=== PATIENT | female | born 1980 | race American Indian/Alaskan Native ===

== ENCOUNTER 2016-07-20 04:48 | Emergency (ER) | payer OTHER ==
[2016-07-20] MEDS ORDERED: DUONEB 0.5 MG-3 MG/3 ML SOLN IH ONE ×2 (04:49→05:05)
[2016-07-20] MEDS ORDERED: PROVENTIL IH ONE ×2 (05:22→05:38)
[2016-07-20] MEDS ORDERED: ATROVENT IH ONE ×2 (05:22→05:38)
[2016-07-20] MEDS ORDERED: ROBITUSSIN AC PO ONE (05:29)
[2016-07-20 06:48] LABS: Anion Gap 19 mmol/L; BUN/Creatinine Ratio 5.55; Blood Urea Nitrogen 5 mg/dL (7-17); Calcium 8.3 mg/dL (8.4-10.2); Carbon Dioxide 22 mmol/L (22-30); Chloride 104.1 mmol/L (98-107); Glucose 103 mg/dL (65-100); Magnesium 2.1 mg/dL (1.7-2.3); Potassium 3.8 mmol/L (3.6-5.0); Sodium 141 mmol/L (137-145)
[2016-07-20 06:51] LABS: Basophils % (Auto) 0.3 % (0.0-1.8); Hematocrit 40.9 % (30.3-42.9); Hemoglobin 13.4 gm/dl (10.1-14.3); Mean Corpuscular HGB Conc 33 % (30-34); Mean Corpuscular Hemoglobin 29 pg (28-32); Mean Corpuscular Volume 89 fl (79-97); Platelet Count 287 K/mm3 (140-440); Red Blood Count 4.58 M/mm3 (3.65-5.03); Red Cell Distribution Width 14.7 % (13.2-15.2); White Blood Count 10.9 K/mm3 (4.5-11.0)
[2016-07-20] MEDS ORDERED: NACL 0.9% 1000 ML 1,000 ML IV ONE (08:38)
[2016-07-20] MEDS ORDERED: TYLENOL PO ONE (08:38)
[2016-07-20] MEDS ORDERED: TORADOL IV ONE (08:38)
[2016-07-20] MEDS ORDERED: PEPCID IV ONE (08:38)
--- NOTE | 2016-07-20 08:39 | Emergency Department Report ---
ED General Adult HPI - General Chief complaint: Dyspnea/Respdistress Stated complaint: CHEST PAIN, BREATHING DIFFICULTY Time Seen by Provider: 07/20/16 08:28 Source: patient, RN notes reviewed, old records reviewed Mode of arrival: Ambulatory Limitations: No Limitations - History of Present Illness Initial comments: This is a 36-year-old female. She is previously unknown to me. She does not have a primary care doctor. She has no chronic medical conditions. Patient comes to the ER complaining of cough, shortness of breath, mucus production, chest wall pain. Symptoms have been going on for the past 3 days. She reports that this has been going on sporadically for the past 5 months. There are no exacerbating or relieving factors. There is no leg pain or leg swelling. No recent trips greater than 4 hours. No recent hospital admissions. No hematemesis or no bright red blood per rectum. There is no cocaine use. Apparently, the patient is noted to be wheezing prior to my evaluation. She was given appropriate nebulizer therapy. Patient reports her chest pain is central in the right side of the breast. It does not radiate to the back, arms and neck. There is no vomiting or diaphoresis. -: Gradual, week(s), month(s) Location: chest Consistency: intermittent Improves with: medication, rest Worsens with: movement Associated Symptoms: chest pain, cough, shortness of breath - Related Data Previous Rx's Medication Instructions Recorded Last Taken Type Albuterol Sulfate [Proair 90 mcg IH Q4HR PRN #2 aer.pow.ba 07/20/16 Unknown Rx Respiclick] Ketorolac [Toradol] 10 mg PO Q6H PRN #20 tablet 07/20/16 Unknown Rx predniSONE [Deltasone] 40 mg PO QDAY #8 tab 07/20/16 Unknown Rx Allergies Allergy/AdvReac Type Severity Reaction Status Date / Time erythromycin base Allergy Unknown Verified 07/20/16 05:52 zolpidem tartrate Allergy Anaphylaxis Verified 07/20/16 05:05 [From [facility]] ED Review of Systems ROS: Stated complaint: CHEST PAIN, BREATHING DIFFICULTY Other details as noted in HPI Constitutional: denies: diaphoresis, malaise Eyes: denies: vision change ENT: denies: epistaxis Respiratory: cough, wheezing Cardiovascular: chest pain Gastrointestinal: denies: vomiting Genitourinary: denies: urgency, dysuria Musculoskeletal: denies: back pain Skin: denies: lesions Neurological: denies: weakness Psychiatric: anxiety ED Past Medical Hx - Past Medical History Hx Asthma: Yes - Surgical History Past Surgical History?: No - Social History Smoking Status: Never Smoker Substance Use Type: None - Medications Home Medications: Home Medications Medication Instructions Recorded Confirmed Last Taken Type Albuterol Sulfate [Proair 90 mcg IH Q4HR PRN #2 aer.pow.ba 07/20/16 Unknown Rx Respiclick] Ketorolac [Toradol] 10 mg PO Q6H PRN #20 tablet 07/20/16 Unknown Rx predniSONE [Deltasone] 40 mg PO QDAY #8 tab 07/20/16 Unknown Rx ED Physical Exam - General Limitations: No Limitations General appearance: alert, in no apparent distress - Head Head exam: Present: atraumatic, normocephalic - Eye Eye exam: Present: normal appearance, EOMI. Absent: nystagmus - ENT ENT exam: Present: normal exam, normal orophraynx, mucous membranes moist, normal external ear exam - Neck Neck exam: Present: normal inspection, full ROM. Absent: tenderness, meningismus - Respiratory Respiratory exam: Present: normal lung sounds bilaterally, chest wall tenderness , other (there is reproducible anterior chest wall tenderness. The bilateral breast exam is unremarkable. During the breast examination, I am escorted by ER nurse BEE JONES). Absent: respiratory distress, wheezes, rales, rhonchi, stridor - Cardiovascular Cardiovascular Exam: Present: regular rate, normal rhythm, normal heart sounds. Absent: bradycardia, tachycardia, irregular rhythm, systolic murmur, diastolic murmur, rubs, gallop - GI/Abdominal GI/Abdominal exam: Present: soft, normal bowel sounds. Absent: distended, tenderness, guarding, rebound, rigid, pulsatile mass - Extremities Exam Extremities exam: Present: normal inspection, full ROM, normal capillary refill. Absent: tenderness, pedal edema, joint swelling, calf tenderness - Back Exam Back exam: Present: normal inspection, full ROM. Absent: tenderness, CVA tenderness (R), CVA tenderness (L), muscle spasm, paraspinal tenderness, vertebral tenderness - Neurological Exam Neurological exam: Present: alert, oriented X3, normal gait, other (Extraocular movements intact. Tongue midline. No facial droop. Facial sensation intact to light touch in the V1, V2, V3 distribution bilaterally. 5 and 5 strength in 4 extremities.. Sensation is intact to light touch in 4 extremities.). Absent : motor sensory deficit - Psychiatric Psychiatric exam: Present: normal affect, normal mood - Skin Skin exam: Present: warm, dry, intact, normal color. Absent: rash ED Course Vital Signs 07/20/16 07/20/16 07/20/16 05:02 05:25 05:57 Temperature 97.6 F Pulse Rate 102 H Pulse Rate [ 89 Anterior Bilateral Throughout] Respiratory 20 Rate Respiratory 22 Rate [Anterior Bilateral Throughout] Blood Pressure 122/79 Blood Pressure [Right] O2 Sat by Pulse 92 100 Oximetry 07/20/16 07/20/16 07/20/16 05:58 09:21 09:22 Temperature Pulse Rate 91 H Pulse Rate [ 89 Anterior Bilateral Throughout] Respiratory 15 15 Rate Respiratory 21 Rate [Anterior Bilateral Throughout] Blood Pressure Blood Pressure 121/62 [Right] O2 Sat by Pulse 100 Oximetry - Reevaluation(s) Reevaluation #1: 07/20/16 10:41 Differential diagnosis: Bronchitis, pleuritis, pericarditis, myocarditis, pneumonia, pulmonary embolus, acute coronary syndrome Assessment and plan: 36-year-old female with resolved wheezing, chest wall pain. Low risk by heart score, low risk by EVIE score, low risk by well's criteria, d-dimer negative, troponins negative 2, EKG is essentially unremarkable. The patient is at very low risk for major adverse cardiac event. She felt improved after symptomatic therapy. I believe the patient is suitable to follow up with outpatient cardiology for ACS risk stratification. Most likely, given her history of wheezing, cough and shortness of breath, it may be a component of undiagnosed reactive airway disease with costochondritis component. The case is discussed with the space and missile operations data communications technician, Dr. Doyle, who agrees that the patient is suitable to follow up as an outpatient. She will be discharged with steroids, Toradol for pain, albuterol therapy, instructed to follow up with outpatient cardiology and primary care. Return precautions are extensively reviewed. Reevaluation #2: 07/20/16 10:45 Blood cultures were ordered prior to my evaluation. Given the current clinical presentation, I do not believe the patient is likely to be bacteremic, and I do not think it is likely that she is experiencing a serious bacterial illness. She can have a primary care doctor follow-up with the medical records department. ED Medical Decision Making - Lab Data Result diagrams: 07/20/16 05:10 07/20/16 05:10 Vital Signs 07/20/16 07/20/16 07/20/16 05:02 05:25 05:57 Temperature 97.6 F Pulse Rate 102 H Pulse Rate [ 89 Anterior Bilateral Throughout] Respiratory 20 Rate Respiratory 22 Rate [Anterior Bilateral Throughout] Blood Pressure 122/79 Blood Pressure [Right] O2 Sat by Pulse 92 100 Oximetry 07/20/16 07/20/16 07/20/16 05:58 09:21 09:22 Temperature Pulse Rate 91 H Pulse Rate [ 89 Anterior Bilateral Throughout] Respiratory 15 15 Rate Respiratory 21 Rate [Anterior Bilateral Throughout] Blood Pressure Blood Pressure 121/62 [Right] O2 Sat by Pulse 100 Oximetry Lab Results 07/20/16 07/20/16 07/20/16 Range/Units 05:10 05:10 08:43 WBC 10.9 (4.5-11.0) K/mm3 RBC 4.58 (3.65-5.03) M/mm3 Hgb 13.4 (10.1-14.3) gm/dl Hct 40.9 (30.3-42.9) % MCV 89 (79-97) fl MCH 29 (28-32) pg MCHC 33 (30-34) % RDW 14.7 (13.2-15.2) % Plt Count 287 (140-440) K/mm3 Lymph % (Auto) 27.1 (13.4-35.0) % Gibson % (Auto) 3.8 (0.0-7.3) % Eos % (Auto) 5.0 H (0.0-4.3) % Baso % (Auto) 0.3 (0.0-1.8) % Lymph # 3.0 (1.2-5.4) K/mm3 Gibson # 0.4 (0.0-0.8) K/mm3 Eos # 0.5 H (0.0-0.4) K/mm3 Baso # 0.0 (0.0-0.1) K/mm3 Seg Neutrophils % 63.8 (40.0-70.0) % Seg Neutrophils # 7.0 (1.8-7.7) K/mm3 PT 11.9 L (12.2-14.9) Sec. INR 0.89 (0.87-1.13) D-Dimer 137.37 (0-234) ng/mlDDU Sodium 141 (137-145) mmol/L Potassium 3.8 (3.6-5.0) mmol/L Chloride 104.1 (98-107) mmol/L Carbon Dioxide 22 (22-30) mmol/L Anion Gap 19 mmol/L BUN 5 L (7-17) mg/dL Creatinine 0.9 (0.7-1.2) mg/dL Estimated GFR > 60 ml/min BUN/Creatinine Ratio 5.55 % Glucose 103 H (65-100) mg/dL Calcium 8.3 L (8.4-10.2) mg/dL Magnesium 2.1 (1.7-2.3) mg/dL Troponin T (0.00-0.029) ng/mL HCG, Quant (0-4) mIU/mL 07/20/16 07/20/16 Range/Units 08:43 08:43 WBC (4.5-11.0) K/mm3 RBC (3.65-5.03) M/mm3 Hgb (10.1-14.3) gm/dl Hct (30.3-42.9) % MCV (79-97) fl MCH (28-32) pg MCHC (30-34) % RDW (13.2-15.2) % Plt Count (140-440) K/mm3 Lymph % (Auto) (13.4-35.0) % Gibson % (Auto) (0.0-7.3) % Eos % (Auto) (0.0-4.3) % Baso % (Auto) (0.0-1.8) % Lymph # (1.2-5.4) K/mm3 Gibson # (0.0-0.8) K/mm3 Eos # (0.0-0.4) K/mm3 Baso # (0.0-0.1) K/mm3 Seg Neutrophils % (40.0-70.0) % Seg Neutrophils # (1.8-7.7) K/mm3 PT (12.2-14.9) Sec. INR (0.87-1.13) D-Dimer (0-234) ng/mlDDU Sodium (137-145) mmol/L Potassium (3.6-5.0) mmol/L Chloride (98-107) mmol/L Carbon Dioxide (22-30) mmol/L Anion Gap mmol/L BUN (7-17) mg/dL Creatinine (0.7-1.2) mg/dL Estimated GFR ml/min BUN/Creatinine Ratio % Glucose (65-100) mg/dL Calcium (8.4-10.2) mg/dL Magnesium (1.7-2.3) mg/dL Troponin T < 0.010 (0.00-0.029) ng/mL HCG, Quant < 2 (0-4) mIU/mL - EKG Data -: EKG Interpreted by Me EKG shows normal: sinus rhythm, axis, ST-T waves Rate: normal - EKG Data When compared to previous EKG there are: previous EKG unavailable 07/20/16 10:46 EKG #1 demonstrates normal sinus, 85 bpm, motion artifact, QTC 454 ms, morphologically consistent with STEMI. EKG #2 demonstrates normal sinus, 89 bpm, motion artifact, normal axis, QTC 479 ms, not morphologically consistent with STEMI. - Radiology Data Radiology results: report reviewed, image reviewed X-ray of the chest is negative for acute disease Critical care attestation.: If time is entered above; I have spent that time in minutes in the direct care of this critically ill patient, excluding procedure time. ED Disposition Clinical Impression: Chest wall pain Disposition: DISCHARGED TO HOME OR SELFCARE Is pt being admited?: No Does the pt Need Aspirin: No Condition: Stable Instructions: Chest Pain (ED), Costochondritis (ED), Reactive Airways Disease ( ED) Additional Instructions: Take the medications as directed. Follow up with a primary care doctor or space and missile operations within the next week. Dr. Vaca is a local primary care doctor. Dr. Doyle is a local laser specialist. Cultures were sent today, results will be available in the next 3-5 days. Please have a primary care doctor contact the medical records department to obtain culture results. Return to the ER right away with new pain, worsened pain, migration of pain, fevers or chills, intractable nausea or vomiting, inability to tolerate liquid feeds, new , worsened or different symptoms. Prescriptions: Albuterol Sulfate [Proair Respiclick] 90 mcg IH Q4HR PRN #2 aer.pow.ba PRN Reason: Wheezing Ketorolac [Toradol] 10 mg PO Q6H PRN #20 tablet PRN Reason: Pain predniSONE [Deltasone] 40 mg PO QDAY #8 tab Referrals: PRIMARY CARE, [Primary Care Provider] - 3-5 Days RADHA VACA MD [Staff Physician] - 3-5 Days TYRELL DOYLE MD [Staff Physician] - 3-5 Days
--- NOTE | 2016-07-20 08:39 | XRay Report ---
CHEST ONE VIEW INDICATION: Shortness of breath. COMPARISON: None similar in this institution. FINDINGS: Portable, single, frontal chest radiograph demonstrates normal cardiomediastinal silhouette. Clear lungs. Unremarkable bones. Extrinsic EKG leads. CONCLUSION: No acute disease in the chest. Thank you for the opportunity to participate in this patient's care.
[2016-07-20 09:05] LABS: INR 0.89 (0.87-1.13)
[2016-07-20 09:22] VITALS: BP 121/62
== END 2016-07-20 11:38 | disposition home or self-care (01) ==
LOC: ED 04:48
DX: R07.89 Other chest pain (principal); J45.909 Unspecified asthma, uncomplicated; Z88.1 Allergy status to other antibiotic agents; Z88.8 Allergy status to other drugs, medicaments and biological substances
CPT/HCPCS: 36415; 71010; 80048; 83735; 84484; 84702; 85025; 85379; 85610; 87040; 93005; 93010; 94640; 96361; 96374; 96375; 99284; J1885; J2930; J7030

== ENCOUNTER 2016-09-07 01:04 | Emergency (ER) | payer SELFPAY ==
[2016-09-07] MEDS ORDERED: MAGNESIUM SULFATE 2GM/50ML 2 GM/50 ML BAG IV ONE (01:16)
[2016-09-07] MEDS ORDERED: ATROVENT IH ONE (01:16)
[2016-09-07] MEDS ORDERED: XOPENEX IH ONE (01:16)
--- NOTE | 2016-09-07 01:16 | Emergency Department Report ---
ED Asthma HPI - General Stated Complaint: CP/GAYLE/ASTHMA Time Seen by Provider: 09/07/16 01:16 Source: patient, family Mode of arrival: Ambulatory Limitations: No Limitations - History of Present Illness Initial Comments: Patient here reports that she is having difficulty breathing, chest tightness, wheezing cough and asthma attack. She says she's been to the emergency room over 20 times in the last year for asthma attack. She says she is on 2 asthma medication one of which is albuterol inhaler and she said another one which is powder medication that she inhales. She says she's been taking the albuterol but it's not working for her. Similar feeling with asthma attack. He said the last time she was here was in July 2016. Denies any chest pain but reports chest tightness. Denies that she had upper respiratory tract infection. Denies ever being intubated for asthma. MD Complaint: "asthma attack", shortness of breath, wheezing -: This afternoon Asthma History: childhood onset, history of frequent attac, history of prior ED visit, followed by specialist (she said she just moved here and she was following up with her lung doctor but she does not have any doctors here she has to find a doctor) Severity: severe, similar to prior Context: none known Associated Symptoms: dry cough, other (chest tightness) Treatments Prior to Arrival: inhaled bronchodilator - Related Data Current Asthma Therapy: inhaled bronchodilator Previous Rx's Medication Instructions Recorded Last Taken Type Ketorolac [Toradol] 10 mg PO Q6H PRN #20 tablet 07/20/16 Unknown Rx predniSONE [Deltasone] 40 mg PO QDAY #8 tab 07/20/16 Unknown Rx ALBUTEROL Inhaler [ProAir HFA 2 puff IH QID PRN #1 inhalation 09/07/16 Unknown Rx Inhaler] Albuterol Sulfate [Albuterol 0.63% 0.63 mg IH QID PRN #1 box 09/07/16 Unknown Rx NEBS] Albuterol Sulfate [Proair 90 mcg IH Q4HR PRN #1 aer.pow.ba 09/07/16 Unknown Rx Respiclick] Nebulizer/Compressor [Innospire 1 each MC PRN #1 unit 09/07/16 Unknown Rx Deluxe James Neb] methylPREDNISolone [Medrol] 4 mg PO QAM #1 tab.ds.pk 09/07/16 Unknown Rx Allergies Allergy/AdvReac Type Severity Reaction Status Date / Time erythromycin base Allergy Unknown Verified 07/20/16 05:52 zolpidem tartrate Allergy Anaphylaxis Verified 07/20/16 05:05 [From Ambien] ED Review of Systems ROS: Stated complaint: CP/GAYLE/ASTHMA Other details as noted in HPI Comment: All other systems reviewed and negative Constitutional: denies: chills, fever Eyes: denies: eye pain, eye discharge, vision change ENT: denies: ear pain, throat pain, congestion Respiratory: cough, shortness of breath, SOB with exertion, SOB at rest, wheezing. denies: stridor Cardiovascular: chest pain (chest tightness). denies: palpitations, edema, syncope Gastrointestinal: denies: abdominal pain, nausea, vomiting Musculoskeletal: denies: back pain, arthralgia Skin: denies: rash Neurological: denies: headache ED Past Medical Hx - Past Medical History Previous Medical History?: Yes Hx Asthma: Yes - Surgical History Past Surgical History?: No - Family History Family history: hypertension - Social History Smoking Status: Never Smoker Substance Use Type: None - Medications Home Medications: Home Medications Medication Instructions Recorded Confirmed Last Taken Type Ketorolac [Toradol] 10 mg PO Q6H PRN #20 tablet 07/20/16 Unknown Rx predniSONE [Deltasone] 40 mg PO QDAY #8 tab 07/20/16 Unknown Rx ALBUTEROL Inhaler [ProAir HFA 2 puff IH QID PRN #1 inhalation 09/07/16 Unknown Rx Inhaler] Albuterol Sulfate [Albuterol 0.63% 0.63 mg IH QID PRN #1 box 09/07/16 Unknown Rx NEBS] Albuterol Sulfate [Proair 90 mcg IH Q4HR PRN #1 aer.pow.ba 09/07/16 Unknown Rx Respiclick] Nebulizer/Compressor [Innospire 1 each MC PRN #1 unit 09/07/16 Unknown Rx Deluxe James Neb] methylPREDNISolone [Medrol] 4 mg PO QAM #1 tab.ds.pk 09/07/16 Unknown Rx ED Physical Exam - General Limitations: No Limitations General appearance: alert, in distress (from asthma attack) - Head Head exam: Present: atraumatic, normocephalic, normal inspection - Eye Eye exam: Present: normal appearance, PERRL, EOMI. Absent: conjunctival injection, periorbital swelling, periorbital tenderness Pupils: Present: normal accommodation - ENT ENT exam: Present: normal exam, normal orophraynx, mucous membranes moist, TM's normal bilaterally, normal external ear exam - Neck Neck exam: Present: normal inspection, full ROM. Absent: tenderness, meningismus, lymphadenopathy - Expanded Neck Exam Expanded Neck exam: Absent: tenderness, midline deformity, anterior neck swelling, tracheal deviation - Respiratory Respiratory exam: Present: respiratory distress, wheezes, other (dry cough). Absent: rales, rhonchi, stridor, chest wall tenderness, accessory muscle use, decreased breath sounds, prolonged expiratory - Expanded Respiratory Exam Expanded Location: Wheezes: Right, Left, Upper, Lower - Cardiovascular Cardiovascular Exam: Present: normal rhythm, tachycardia, normal heart sounds - GI/Abdominal GI/Abdominal exam: Present: soft, normal bowel sounds. Absent: distended, tenderness, guarding, rebound, rigid - Extremities Exam Extremities exam: Present: normal inspection, full ROM, normal capillary refill. Absent: tenderness, pedal edema, joint swelling, calf tenderness - Back Exam Back exam: Present: normal inspection, full ROM - Neurological Exam Neurological exam: Present: alert, oriented X3, normal gait, reflexes normal. Absent: motor sensory deficit - Psychiatric Psychiatric exam: Present: normal affect, normal mood - Skin Skin exam: Present: warm, dry, intact, normal color. Absent: rash ED Course Vital Signs 09/07/16 09/07/16 09/07/16 01:14 01:29 01:45 Temperature 98.1 F Pulse Rate 110 H Pulse Rate [ 95 H 94 H Anterior Bilateral Throughout] Respiratory 22 Rate Respiratory 22 20 Rate [Anterior Bilateral Throughout] Blood Pressure 137/83 O2 Sat by Pulse 94 Oximetry 09/07/16 02:05 Temperature Pulse Rate Pulse Rate [ 97 H Anterior Bilateral Throughout] Respiratory Rate Respiratory 22 Rate [Anterior Bilateral Throughout] Blood Pressure O2 Sat by Pulse Oximetry Vital Signs 09/07/16 09/07/16 09/07/16 01:14 01:29 01:45 Temperature 98.1 F Pulse Rate 110 H Pulse Rate [ 95 H 94 H Anterior Bilateral Throughout] Respiratory 22 Rate Respiratory 22 20 Rate [Anterior Bilateral Throughout] Blood Pressure 137/83 Blood Pressure [Right] O2 Sat by Pulse 94 Oximetry 09/07/16 09/07/16 02:05 03:42 Temperature 97.9 F Pulse Rate 100 H Pulse Rate [ 97 H Anterior Bilateral Throughout] Respiratory 20 Rate Respiratory 22 Rate [Anterior Bilateral Throughout] Blood Pressure Blood Pressure 121/78 [Right] O2 Sat by Pulse 96 Oximetry - Reevaluation(s) Reevaluation #1: 09/07/16 01:58 Patient with asthma attack and was given soap and asked to 2.5 mg nebulizer and Atrovent 0.5 mg nebulizer. She was also given Solu-Medrol 125 mg IV and magnesium sulfate IV started. Patient still reports that she's wheezing after nebulizer treatment and reports that she is still feeling tight in her chest. The and evaluation, patient still with wheezing therefore to start on albuterol 10 mg inhaler. Mag sulfate is still infusing. Reevaluation #2: 09/07/16 03:24 Patient completed albuterol 10 mg nebulizer treatment. Magnesium sulfate. She says she is feeling a lot better. Reevaluation of lung sounds, no audible wheezing noted. ED Medical Decision Making - Medical Decision Making ED course: Her that the emergency room with acute asthma exacerbation, shortness of breath, wheezing and reports that she's taking her inhaler which is not working. She has multiple visits to ER per patient. She said 20 visit within 1 year. Patient says she's near to [place] and had a lung doctor but she doesn't have any doctor here. Patient given Solu-Medrol 125 mg IV, Xopenex 2.5 mg and Atrovent 0.5 mg nebulizer and still wheezing. She was given albuterol 10 mg nebulizer, magnesium sulfate 1 g IV given. Patient says she is feeling better, upon reevaluation of lungs, lungs sounds are clear. Patient denies any chest pain or tightness. I discussed with patient diagnosis and treatment plans and I instructed her that she will need to follow-up with primary care physician and pulmonary doctor. She does not have a nebulizer at home so I told her I'll order nebulizer machine. I instructed patient that I' ll refer her to [facility] for primary care visit to call in the morning to schedule an appointment and also to call Dr. Duran pulmonologists to schedule an appointment. Patient is stable condition discharged home with her family with prescription for Medrol Dosepak, nebulizer machine, albuterol nebulizer and albuterol inhaler. Critical care attestation.: If time is entered above; I have spent that time in minutes in the direct care of this critically ill patient, excluding procedure time. ED Disposition Clinical Impression: Cough in adult Asthma exacerbation attacks Qualifiers: Asthma severity: moderate persistent Qualified Code(s): J45.41 - Moderate persistent asthma with (acute) exacerbation Disposition: DISCHARGED TO HOME OR SELFCARE Is pt being admited?: No Does the pt Need Aspirin: No Condition: Stable Instructions: Asthma (ED), Acute Cough (ED) Additional Instructions: Please return to the emergency room if his symptoms recur. Follow-up with [facility] for primary care see address and phone number in discharge instruction paperwork Follow up with metal machinist as instructed. Please take medication as prescribed. Use albuterol nebulizer every 4-6 hours over the next 2 days and then as needed. Prescriptions: ALBUTEROL Inhaler [ProAir HFA Inhaler] 2 puff IH QID PRN #1 inhalation PRN Reason: Wheezing Albuterol Sulfate [Albuterol 0.63% NEBS] 0.63 mg IH QID PRN #1 box PRN Reason: Wheezing Albuterol Sulfate [Proair Respiclick] 90 mcg IH Q4HR PRN #1 aer.pow.ba PRN Reason: Wheezing methylPREDNISolone [Medrol] 4 mg PO QAM #1 tab.ds.pk Nebulizer/Compressor [Innospire Deluxe James Neb] 1 each MC PRN #1 unit Referrals: PRIMARY CAREMD [Primary Care Provider] - 3-5 Days [facility] [Outside] - 09/08/16 GREGORIA DESIR MD [Staff Physician] - 2-3 Days Forms: Accompanied Note, Work/School Release Form(ED)
[2016-09-07] MEDS ORDERED: PROVENTIL IH ONE (01:56)
[2016-09-07 03:44] VITALS: BP 121/78
== END 2016-09-07 03:58 | disposition home or self-care (01) ==
LOC: ED 01:04
DX: J45.41 Moderate persistent asthma with (acute) exacerbation (principal); R05 Cough; Z88.8 Allergy status to other drugs, medicaments and biological substances
CPT/HCPCS: 94640; 94644; 96365; 96375; 99283; J2930; J3475